=== PATIENT | female | born 1975 | race Two or more races ===

== ENCOUNTER 2022-03-15 16:40 | Outpatient (CLI) | payer OTHER | END 2022-03-15 16:51 | disposition home or self-care (01) | LOC: RAD 16:40 | PROVIDERS: ATTEND Orthopaedic Surgery | DX: M79.672 Pain in left foot (principal) ==

== ENCOUNTER 2022-03-28 13:59 | Outpatient (CLI) | payer OTHER | END 2022-03-28 14:11 | disposition home or self-care (01) | LOC: SONOGRAMA 13:59 | DX: E04.1 Nontoxic single thyroid nodule (principal) ==